=== PATIENT | female | born 1955 | race Caucasian/White ===

== ENCOUNTER → 2016-05-07 | Outpatient (CLI) | payer MEDICARE, OTHER ==
[~2016-05-07] MED LIST: ACTEMRA IV; ALPR-557 GT; APIX5TAB PO; ASPI-983 PO; ASPI-999 PO; ATOR40TA70 PO; CALC-870 PO; CARB-104 PO; CYCL10TA45 GT; DICL75TA2 PO; DILT240C90 PO; GLIP5TAB26 PO; HYDR-3720 PO; LISI1TAB10 PO; LORA10TA7 PO; METF500T8 PO; METO-272 PO; MULT-884 PO; PARO20TA57 PO; PROP10TA8 PO; QTP200T PO; SERT100T8 PO; SULF500T7 PO; TMZP15C PO; ZOLP10TA5 PO
--- NOTE | 2016-05-07 09:33 | Diagnostic Imaging Report ---
EXAMINATION: Ultrasound Doppler abdomen complete. INDICATION: Hypertension. TECHNIQUE: Spectral and color flow imaging of the renal arteries was performed. COMPARISON: The gallbladder ultrasound exam of 01/29/2011 indicated that the right kidney was within normal limits. There are no other previous studies available for comparison. FINDINGS: On this exam, both kidneys were identified. The kidneys are normal in size with the right kidney measuring 12.0 x 5.0 x 5.5 cm and the left kidney estimated to be 12.0 x 5.7 x 5.1 cm. There is no evidence for solid renal mass or for hydronephrosis of either kidney. Renal cortices are normal in thickness and echogenicity. There is no shadowing from the kidneys to suggest nephrolithiasis. The renal arteries were not well visualized due to overlying bowel gas. Only the distal most portion of the renal arteries could be identified. There is no sign of a hemodynamically significant stenosis in these segments of the renal artery. The resistive indices for both kidneys are elevated however with the right resistive index 0.75-0.77 and the left 0.74-0.78 (normal 0.00 or less). The bladder was not imaged during the course of this exam. IMPRESSION: 1. There is no evidence for solid renal mass or for an acute abnormality of either kidney. 2. The renal arteries were not well visualized. Where visualized, there is no sign of a hemodynamically significant stenosis. The resistive indices of both kidneys are elevated however. 3. If further imaging is desired, then CTA of the aorta and renal arteries should be obtained. Dictated by: Dictated on workstation # [id number]
== END ==
LOC: RAD 07:06
PROVIDERS: ATTEND Nurse Practitioner Family
DX: I10 Essential (primary) hypertension (principal)
CPT/HCPCS: 93975

== ENCOUNTER → 2016-05-11 | Outpatient (CLI) | payer MEDICARE, OTHER ==
[~2016-05-11] MED LIST changes: +CATHETER FLUSH 10 ML SYR IV PRN; +REGADENOSON 0.4 MG/5 ML SYR (LEXISCAN) IV ONE
[2016-05-11 09:03] VITALS: BP 216/74
--- NOTE | 2016-05-12 08:23 | STRESS TEST ---
PROCEDURE PHYSICIAN: JEREMIE LOPEZ DATE OF PROCEDURE: 05/11/2016 RESTING AND POST REGADENOSON TECHNETIUM 99M TETROFOSMIN SPECT CT IMAGING: ORDERING PHYSICIAN: Juan Pickett APRN. PRIMARY PHYSICIAN: Dr. Cole CLINICAL DIAGNOSIS: Chest pain. Baseline images were carried out after injection of 10.89 mCi of technetium 99m tetrofosmin. This was followed by 0.4 mg of regadenoson and 31 mCi of technetium 99m tetrofosmin for stress imaging. The electrocardiogram shows significant baseline artifact. The rhythm appears to be atrial fibrillation. The electrocardiogram did not change significantly with regadenoson infusion. Review of images at rest and following stress, does not indicate significant perfusion defects consistent myocardial ischemia or infarction. Gated images show normal global left ventricular systolic function with no regional wall motion. Left ventricular ejection fraction is calculated to be 75%. Left ventricular end-diastolic volume is 57 mL. TID is absent (1.1). CONCLUSIONS: 1. Abnormal cardiac rhythm: atrial fibrillation with a controlled ventricular response. 2. No evidence of significant myocardial ischemia or infarction on this study. 3. Normal regional wall motion. 4. Normal global left ventricular systolic function with a calculated ejection fraction of 75%. Job ID: [id number] Dictated Date: 05/11/2016 15:24:31 Linux Devops Engineer Date: 05/12/2016 08:18:32 / janis GOTTI
== END ==
LOC: CARD 07:12
PROVIDERS: ATTEND Nurse Practitioner Family
DX: R07.89 Other chest pain (principal)
CPT/HCPCS: 78452; 93017

== ENCOUNTER → 2016-05-14 | Outpatient (CLI) | payer MEDICARE, OTHER ==
[~2016-05-14] MED LIST changes: +IOHEXOL 350 MG/ML 100 ML (OMNIPAQUE 350) VIAL IV ONE; +NS 100 ML (IVPB) BAG IV ONE; -REGADENOSON 0.4 MG/5 ML SYR (LEXISCAN) IV ONE
[2016-05-14 11:23] LABS: ALANINE AMINOTRANSFERASE 34 U/L (0-55); ALBUMIN 4.6 G/DL (3.2-4.5); ANION GAP 11 MMOL/L (5-14); ASPARTATE AMINO TRANSFERASE 25 U/L (5-34); BILIRUBIN,TOTAL 0.5 MG/DL (0.1-1.0); BLOOD UREA NITROGEN 11 MG/DL (7-18); BUN/CREATININE RATIO 16; CALCIUM 9.2 MG/DL (8.5-10.1); CARBON DIOXIDE 25 MMOL/L (21-32); CHLORIDE 104 MMOL/L (98-107); GFR ESTIMATED > 60; GLUCOSE 91 MG/DL (70-105); POTASSIUM 4.1 MMOL/L (3.6-5.0); SODIUM 140 MMOL/L (135-145); TOTAL PROTEIN 6.8 G/DL (6.4-8.2)
--- NOTE | 2016-05-14 12:29 | Diagnostic Imaging Report ---
INDICATION: Hypertension. TECHNIQUE: CTA of the abdomen obtained pre and post IV contrast with axial slices and coronal MIP reconstructions. COMPARISON: There is no previous study for comparison. FINDINGS: Visualized portions of the lung bases are clear. There were no pleural fluid collections. There is no free intraperitoneal air. The liver and gallbladder appear unremarkable. The spleen, adrenals, and pancreas are normal. The kidneys bilaterally appear normal. There is no retroperitoneal mass or adenopathy. There is no ascites or abnormal fluid collection. Visualized bowel loops are unremarkable. CTA images demonstrate the abdominal aorta to be patent, but there is some dense calcific plaquing in the aorta with a focal stenotic area in the aorta a few centimeters above the bifurcation. The celiac trunk and SMA appear widely patent. There are single renal arteries on both sides. The right renal artery shows plaquing of the stenosis which may be significant at about a centimeter from the ostium. Distal portion of the renal artery was patent. The left renal artery shows plaquing at the origin, which does not appear to be hemodynamically significant. There is some peripheral plaquing in the segmental branches. There appears to be occlusion of the left common iliac artery at the origin. There is dense plaquing in the left common iliac origin with at least moderate stenosis. IMPRESSION: 1. No abdominal mass or abnormal fluid collection. There is marked atherosclerotic change of the abdominal aorta with diffuse plaquing and focal significant stenosis in the aorta in the infrarenal segment. 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 2. There is minor plaquing of the left renal artery origin without significant stenosis. There is stenosis about a centimeter from the right renal artery origin which may be significant but is partially obscured by calcification. Consider angiography if clinically warranted. Dictated by: Dictated on workstation # [id number]
== END ==
LOC: RAD 10:44
PROVIDERS: ATTEND Nurse Practitioner Family
DX: I15.1 Hypertension secondary to other renal disorders (principal)
CPT/HCPCS: 36415; 74175; 80053

== ENCOUNTER 2016-05-25 09:40 | Day surgery (SDC) | payer MEDICARE, OTHER ==
[~2016-05-25] VITALS: Ht 165.1 cm; Wt 81.6 kg
[2016-05-25] VITALS (16 sets, daily range): BP systolic 140–213; BP diastolic 70–127
[~2016-05-25 09:40] MED LIST changes: -ACTEMRA IV; -APIX5TAB PO; -ASPI-983 PO; -ASPI-999 PO; -ATOR40TA70 PO; -CALC-870 PO; -CATHETER FLUSH 10 ML SYR IV PRN; -DILT240C90 PO; -GLIP5TAB26 PO; -IOHEXOL 350 MG/ML 100 ML (OMNIPAQUE 350) VIAL IV ONE; -LISI1TAB10 PO; -LORA10TA7 PO; -METF500T8 PO; -METO-272 PO; -MULT-884 PO; -NS 100 ML (IVPB) BAG IV ONE; -SERT100T8 PO; -SULF500T7 PO
--- OUTSIDE RECORDS SUMMARY | 2016-05-25 09:43 | XMS REPORT | Continuity of Care Document ---
Author Author [facility] Organization [facility] Address Unknown Phone Unavailable Allergies Active Description Code Type Severity Reaction Onset Reported/Identified Relationship to Patient Clinical Status Yes morphine [id number] Drug Allergy Mild N/A 11/25/2012 Medications Problems Date Dx Coded Attending Type Code Diagnosis Diagnosed By 05/07/2016 Ot 575.6 GB CHOLESTEROLOSIS 05/07/2016 Ot 789.1 HEPATOMEGALY 05/07/2016 Ot 789.01 ABDOMINAL PAIN, RIGHT UPPER QUADRANT 05/07/2016 Ot 721.3 LUMBOSACRAL SPONDYLOSIS 05/07/2016 Ot 721.42 SPOND COMPR LUMB SP CORD 05/07/2016 NINA COBB APRN Ot R07.89 OTHER CHEST PAIN 05/10/2016 NINA COBB APRN Ot I10 ESSENTIAL (PRIMARY) HYPERTENSION 05/10/2016 NINA COBB APRN Ot I10 ESSENTIAL (PRIMARY) HYPERTENSION 05/12/2016 NINA COBB APRN Ot R07.89 OTHER CHEST PAIN 05/14/2016 NINA COBB APRN Ot 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 05/14/2016 NINA COBB APRN Ot 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70 mg /dL 0.60-1.30 Serum or plasma urea nitrogen/creatinine mass ratio 16 NRG Serum or plasma creatinine measurement with calculation of estimated glomerular filtration rate > NRG Serum or plasma glucose measurement (mass/volume) 91 mg/dL 70-105 Serum or plasma calcium measurement (mass/volume) 9.2 mg/dL 8.5-10.1 Serum or plasma total bilirubin measurement (mass/volume) 0.5 mg/dL 0.1-1.0 Serum or plasma alkaline phosphatase measurement (enzymatic activity/volume) 79 U/L 40-136 Serum or plasma aspartate aminotransferase measurement (enzymatic activity/ volume) 25 U/L 5-34 Serum or plasma alanine aminotransferase measurement (enzymatic activity/volume ) 34 U/L 0-55 Serum or plasma protein measurement (mass/volume) 6.8 g/dL 6.4-8.2 Serum or plasma albumin measurement (mass/volume) 4.6 g/dL 3.2-4.5 Encounters ACCT No. Visit Date/Time Discharge Status Pt. Type Provider Facility Loc./Unit Complaint [id number] 11/25/2012 18:44:00 2012 23:59:59 CLS Preadmit BREA SALMON, BELKIS Harmon [facility] ER CONFUSION [id number] 05/14/2016 10:44:00 ACT Outpatient NINA COBB APRN [facility] RAD RENAL HYPERTENSION [id number] 05/11/2016 07:12:00 ACT Outpatient NINA COBB APRN [facility] CARD CHEST PAIN [id number] 05/07/2016 07:06:00 ACT Outpatient INNA COBB APRN [facility] RAD ESSENTIAL HTN [id number] 02/18/2012 09:17:00 Document Registration [id number] 02/12/2011 07:51:00 Document Registration [id number] 01/29/2011 09:09:00 Document Registration
--- OUTSIDE RECORDS SUMMARY | 2016-05-25 09:43 | XMS REPORT | Continuity of Care Document ---
Author Author [facility] Organization [facility] Address Unknown Phone Unavailable Allergies Active Description Code Type Severity Reaction Onset Reported/Identified Relationship to Patient Clinical Status Yes morphine [id number] Drug Allergy Mild N/A 11/25/2012 Medications Problems [...] Status Pt. Type Provider Facility Loc./Unit Complaint [id number] 11/25/2012 18:44:00 2012 23:59:59 CLS Preadmit BREA SALMON, BELKIS Harmon [facility] ER CONFUSION [id number] 05/14/2016 10:44:00 ACT Outpatient NINA OCBB APRN [facility] RAD RENAL HYPERTENSION [id number] 05/11/2016 07:12:00 ACT Outpatient NINA COBB APRN [facility] CARD CHEST PAIN [id number] 05/07/2016 07:06:00 ACT Outpatient NINA COBB APRN [facility] RAD ESSENTIAL HTN [id number] 02/18/2012 09:17:00 Document Registration [id number] 02/12/2011 07:51:00 Document Registration [id number] 01/29/2011 09:09:00 Document Registration
[2016-05-25] MEDS ORDERED: NS IV 1000 ML 1,000 ML ONE (10:02)
[2016-05-25] MEDS ORDERED: LIDOCAINE 1% INJ 20 ML (XYLOCAINE) VIAL ONE (10:02)
[2016-05-25] MEDS ORDERED: HEParin (CATH LAB) 2,000 ML IV ONE (10:02)
[2016-05-25] MEDS ORDERED: NS IV 1000 ML 1,000 ML IV SCH ×2 (10:45→14:33)
[2016-05-25 10:54] LABS: MEAN PLATELET VOLUME 10.6 FL (7.4-10.4); RED BLOOD COUNT 4.74 10^6/uL (4.35-5.85); RED CELL DISTRIBUTION WIDTH 12.3 % (10.0-14.5); WHITE BLOOD COUNT 7.4 10^3/uL (4.3-11.0)
[2016-05-25 11:05] LABS: PROTHROMBIN TIME PATIENT 12.6 SEC (12.2-14.7)
[2016-05-25 11:15] LABS: ALANINE AMINOTRANSFERASE 48 U/L (0-55); ALBUMIN 4.7 G/DL (3.2-4.5); ANION GAP 13 MMOL/L (5-14); ASPARTATE AMINO TRANSFERASE 30 U/L (5-34); BILIRUBIN,TOTAL 0.5 MG/DL (0.1-1.0); BLOOD UREA NITROGEN 18 MG/DL (7-18); BUN/CREATININE RATIO 25; CALCIUM 9.5 MG/DL (8.5-10.1); CARBON DIOXIDE 23 MMOL/L (21-32); CHLORIDE 104 MMOL/L (98-107); CHOLESTEROL 266 MG/DL (< 200); CREATININE SERUM 0.71 MG/DL (0.60-1.30); DIRECT LDL 178 MG/DL (1-129); GFR ESTIMATED > 60; GLUCOSE 163 MG/DL (70-105); SODIUM 140 MMOL/L (135-145); TOTAL PROTEIN 7.2 G/DL (6.4-8.2); TRIGLYCERIDES 296 MG/DL (<150); VLDL CHOLESTEROL 59 MG/DL (5-40)
[2016-05-25] MEDS ORDERED: FLU TRIvalent (5 YOA+) 2016-17 (AFLURIA) 0.5 ML IM ONE (11:15)
[2016-05-25] MEDS ORDERED: METF500T8 PO (11:20)
[2016-05-25] MEDS ORDERED: DILT240C90 PO (11:20)
[2016-05-25] MEDS ORDERED: SULF500T7 PO ×2 (11:20)
[2016-05-25] MEDS ORDERED: APIX5TAB PO (11:20)
[2016-05-25] MEDS ORDERED: ACTEMRA IV (11:20)
[2016-05-25] MEDS ORDERED: METO-272 PO (11:20)
[2016-05-25] MEDS ORDERED: GLIP5TAB26 PO (11:20)
[2016-05-25] MEDS ORDERED: CALC-870 PO (11:20)
[2016-05-25] MEDS ORDERED: LISI1TAB10 PO (11:20)
[2016-05-25] MEDS ORDERED: MULT-884 PO (11:20)
[2016-05-25] MEDS ORDERED: ASPI-983 PO (11:20)
[2016-05-25] MEDS ORDERED: SERT100T8 PO (11:20)
[2016-05-25] MEDS ORDERED: LORA10TA7 PO (11:20)
[2016-05-25] MEDS ORDERED: MIDAZOLAM 5 MG/5 ML (VERSED) VIAL ONE (13:04)
[2016-05-25] MEDS ORDERED: fentaNYL INJECTION 100 MCG/2 ML AMP ONE (13:05)
[2016-05-25] MEDS ORDERED: diphenhydrAMINE 50 MG/ML INJ (BENADRYL) ONE (13:05)
--- NOTE | 2016-05-25 13:47 | Cardiac Procedure Note-CS/ASA ---
Pre-Procedure Note Pre-Op Procedure Note H&P Reviewed The H&P was reviewed, patient examined and no changes noted. Date H&P Reviewed: May 25, 2016 Time H&P Reviewed: 13:47 Conscious Sedation Pre-Proced Time Reviewed: 13:47 ASA Class: 3 Airway Mallampati Classification: (lime appropriate class) I. II. III, IV Lungs Heart ASA score ASA 1: a normal healthy patient ASA 2: a patient with a mild systemic disease (mid diabetes, controlled hypertension, obesity ASA 3: a patient with a severe systemic disease that limits activity (angina , COPD, prior Myocardial infarction) ASA 4: a patient with an incapacitating disease that is a constant threat to life (CHF, renal failure) ASA 5: a moribund patient not expected to survive 24 hrs. (ruptured aneurysm) ASA 6: a declared brain patient whose organs are being harvested. For emergent operations, add the letter E after the classification Grade 2 Sedation Plan: Analgesia, Amnesia, Plan communicated to team members, Discussed options with patient/fam, Discussed risks with patient/fam Note The patient is an appropriate candidate to undergo the planned procedure, sedation, and anesthesia. The patient immediately re-assessed prior to indication. JEREMIE LOPEZ MD FACP FAC CCDS May 25, 2016 13:47
[2016-05-25] MEDS ORDERED: meTOprolol 5 MG/5 ML (LOPRESSOR) VIAL ONE (14:14)
[2016-05-25] MEDS ORDERED: ATOR40TA70 PO (14:41)
[2016-05-25] MEDS ORDERED: ASPI-999 PO (14:41)
--- NOTE | 2016-05-25 14:44 | Discharge Inst-Post CATH ---
Discharge Inst-CATH Post Cardiac Cath D/C Inst Follow Up/Plan F/u with Dr Villatoro in 1-[address] Villatoro's office is arranging a Vascular Surgical consultation. Call the office tomorrow to find out the details of referral appointment CARDIAC CATH DISCHARGE INSTRUCTIONS *Hold Metformin for 48 hours post heart cath. ACTIVITY * Go Home directly and rest. * Limit activity of the leg (or wrist if it was used) for 7 days including aerobics, swimming, jogging, bicycling, etc. * Restrict stair-climbing for 7 days if possible, if not, climb up with your non -cath leg, then bring together on the same step. * Avoid lifting, pushing, pulling or excessive movement of the affected extremity for 7 days. * Customary sexual activity may be resumed after 2 days-use caution not to use a position that strains or causes pain to the affected extremity. * No driving for 24 hours. * NO SMOKING. * Avoid straining for bowel movements for 7 days. * Gentle walking on level ground is allowed. * Returning to work will depend on the type of procedure and the results. Your doctor will discuss this with you. CALL YOUR DOCTOR FOR ANY OF THE FOLLOWING: *If bleeding from the puncture site occurs- Apply gentle pressure to site with clean cloth and call your doctor or EMS. * If a knot or lump forms under the skin, increases in size, or causes pain. * If bruising appears to be worsening or moving further down your leg instead of disappearing. * Temperature above 101 F. CARE OF YOUR GROIN INCISION; * Bruising or purple discoloration of the skin near the puncture site is common. * You may shower only, no bathtub bathing for 5 days. Be careful to avoid slipping as your leg may feel stiff. * If a closure device was used on your femoral artery, please see the attached guide regarding care of the device and your leg. * REMOVE the dressing from your groin the next day after your procedure in the shower. CARE OF YOUR WRIST INCISION; * Bruising or purple discoloration of the skin near the puncture site is common. * You may shower. * DO NOT submerge wrist. * Remove dressing in 24 hours. JEREMIE VILLATORO MD [facility] CCDS May 25, 2016 14:44
[2016-05-25] MEDS ORDERED: PATIENT MAY USE OWN MEDS, ALL PO SCH (14:45)
--- NOTE | 2016-05-25 14:45 | Discharge Inst-Cardiology ---
Discharge Inst-Cardiac Discharge Medications New Medications: Aspirin (Aspirin) 81 Mg Tab.chew 81 MG PO DAILY #90 Ref 3 TAB Atorvastatin Calcium (Atorvastatin Calcium) 40 Mg Tablet 40 MG PO DAILY #90 Ref 3 TAB Continued Medications: Apixaban (Eliquis) 5 Mg Tablet 5 MG PO BID TAB Calcium Carbonate (Tums X-Str) 300 Mg Tab.chew 300 MG PO QID PRN INDIGESTION TAB Diltiazem HCl (Diltiazem 24Hr Cd) 240 Mg Cap.er.24h 240 MG PO DAILY CAP Glipizide (Glipizide ER) 5 Mg Tab.er.24 5 MG PO BID TAB Lisinopril/Hydrochlorothiazide (Lisinopril-Hctz 20-25 mg Tab) 1 Each Tablet 1 TAB PO DAILY TAB Loratadine (Loratadine) 10 Mg Tablet 10 MG PO Q48H TAB Metoprolol Succinate (Metoprolol Succinate) 50 Mg Tab.er.24h 50 MG PO HS TAB Multivits,Ca,Minerals/Iron/FA (Women's Daily Caplet) 1 Each Tablet 1 TAB PO DAILY TAB Sertraline HCl (Sertraline HCl) 100 Mg Tablet 100 MG PO HS TAB Sulfasalazine (Sulfasalazine) 500 Mg Tablet 1500 MG PO DAILY TAKES 3 (500MG) TABLETS EVERY MORNING TAB Sulfasalazine (Sulfasalazine) 500 Mg Tablet 1000 MG PO HS TAKES 2 (500MG) TABLETS TAB ([Actemra]) IV MONTHLY Discontinued Medications: Aspirin (Aspirin EC) 81 Mg Tablet.dr 81 MG PO HS TAB Metformin HCl (Metformin HCl ER) 500 Mg Tab.er.24h 1000 MG PO BID TAKES 2 (500MG) TABLETS TAB Patient Instructions Patient Instructions: Hold METFORMIN until the morning of 05/28/16. Then resume metformin in the previous home dose JEREMIE LOPEZ MD FACP FAC CCDS May 25, 2016 14:45
[2016-05-25] MEDS ORDERED: amLODIPine 10 MG (NORVASC) TAB PO ONE (15:00)
[2016-05-25] MEDS ORDERED: lisINopril 20 MG (ZESTRIL) TAB PO SCH (17:45)
--- NOTE | 2016-05-26 10:23 | ECHOCARDIOGRAPHY REPORT ---
PROCEDURE PHYSICIAN: JEREMIE VILLATORO DATE OF PROCEDURE: 05/25/2016 TWO DIMENSIONAL ECHOCARDIOGRAM REPORT PRIMARY PHYSICIAN: Dr. Cole OTHER PHYSICIAN: Juan Pickett APRN REFERRING PHYSICIAN: ORDERING PHYSICIAN: Dr. Villatoro INDICATION FOR THE PROCEDURE: 1. Peripheral arterial disease. 2. Hypertension. MEASUREMENTS DERIVED VALUES LV DIAMETER (LAX) NORMALS NORMALS Diastolic 4.6 (3.6-5.2) Eject. Fract. (60%+/-6%) Systolic (2.3-3.9) Diastolic Vol. % Shortening (0.22-0.42) Systolic Vol. Aortic Root 3.4 IVS THICKNESS Diastolic 1.4 (0.6-1.1) LVPW THICKNESS Diastolic 1.4 (0.6-1.1) LA DIAMETER Systolic 3.7 (2.1-3.7) DESCRIPTION: Two-dimensional echocardiography shows normal global left ventricular systolic function with normal regional wall motion. Aortic, mitral and tricuspid valve leaflets show good leaflet excursion. There is mild mitral annular calcification. There is no significant pericardial effusion. Doppler imaging shows trivial mitral and tricuspid regurgitation. There is mild concentric left ventricular hypertrophy. There is mild to moderate aortic valve sclerosis. Aortic, mitral and tricuspid valve leaflets show good leaflet excursion. Aortic valve appears to be trileaflet. Mitral inflow is consistent with grade 1 diastolic dysfunction of the left ventricle. Inferior vena cava does not appear to be significantly dilated. CONCLUSIONS: 1. Well preserved global left ventricular systolic function with an ejection fraction of approximately 60%. 2. Trivial, mitral and tricuspid regurgitation. 3. Mitral annular calcification and aortic valve sclerosis, moderate, without evidence of significant valvular stenosis. 4. Mild diastolic dysfunction of the left ventricle. 5. Pulmonary artery systolic pressure is estimated to be within normal limits. Job ID: [id number] Dictated Date: 05/26/2016 09:09:04 Termite Control Service Representative Date: 05/26/2016 10:18:15 / [email or web address]
--- NOTE | 2016-05-27 09:34 | PROCEDURE REPORT ---
PROCEDURE PHYSICIAN: JEREMIE LOPEZ DATE OF PROCEDURE: 05/25/2016 PERIPHERAL ANGIOGRAPHY REPORT: Evelina Schultz is a 61-year-old lady who has bilateral leg claudication, severe, more on the right side. She also has severe hypertension. Peripheral angiography was carried out today after having obtained informed consent. PROCEDURE: She was brought to the cardiac catheterization laboratory. The left groin was prepared and draped in usual sterile fashion. 1% lidocaine was used for local anesthesia. Modified Seldinger technique was used to advance a 5-Haitian sheath in right femoral artery. We will be able to advance a wire across the lower abdominal aorta into the thoracic aorta, but we were not able to advance any catheters up into the abdominal aorta because they were catching in the lower abdominal aorta just proximal to the aortoiliac bifurcation due to stenosis. We tried different catheters but were not able to advance it to beyond the lower abdominal aorta and then decided to carry out angiography of the aortoiliac junction with runoff for which we used a 5-Haitian tapered angle Sims catheter for which we used a straight tapered Sims catheter. We were able to position it just above the aortoiliac bifurcation and angiography was performed with runoff down to the level of the ankles on both sides. Subsequently, following removal of Guide catheter, we performed angiography of the left femoral artery through the sheath, but site of sheath deployment was not suitable for device closure. The patient was transferred to holding area for manual sheath removal. She tolerated the procedure well. BILATERAL ILIAC ARTERY ANGIOGRAPHY WITH RUNOFF: Bilateral iliac artery angiography indicates greater than 90% stenosis in the lower abdominal aorta. The right common iliac artery and the proximal portions of the external and internal right iliac arteries are totally occluded. The external iliac artery reconstitutes via collaterals and then there is a good runoff down to the level of the popliteal artery and its trifurcation. On the left side, there is mild disease involving the common iliac and external and internal iliac arteries. The common femoral and the superficial and deep femoral arteries on the right side are intact. The right popliteal is intact and trifurcates normally with a good runoff down to the level of the ankle. CONCLUSIONS: 1. Greater than 90% lower abdominal aortic stenosis. 2. 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 DISCUSSION AND RECOMMENDATIONS: We will refer for vascular surgical consultation for evaluation for treatment. Risk factor modification has been reviewed with her. Outpatient follow-up has been advised. Job ID: [id number] Dictated Date: 05/25/2016 14:27:23 Last Code Striper Date: 05/27/2016 09:25:47 / janis
== END 2016-05-25 19:58 | disposition home or self-care (01) ==
LOC: CARD 09:40 → ICU 15:12 → CARD 19:58
PROVIDERS: ATTEND Nurse Practitioner Family
DX: I70.213 Atherosclerosis of native arteries of extremities with intermittent claudication, bilateral legs (principal); I70.0 Atherosclerosis of aorta; I70.92 Chronic total occlusion of artery of the extremities; I10 Essential (primary) hypertension; I48.0 Paroxysmal atrial fibrillation; E11.9 Type 2 diabetes mellitus without complications; E78.5 Hyperlipidemia, unspecified; Z79.899 Other long term (current) drug therapy; Z87.891 Personal history of nicotine dependence
CPT/HCPCS: 36200; 36415; 75630; 80053; 80061; 85027; 85610; 85730; 87081; 93306

== ENCOUNTER → 2016-05-31 | Outpatient (CLI) | payer MEDICARE, OTHER ==
[~2016-05-31] MED LIST changes: +ACTEMRA IV; +APIX5TAB PO; +ASPI-983 PO; +ASPI-999 PO; +ATOR40TA70 PO; +CALC-870 PO; +DILT240C90 PO; +GLIP5TAB26 PO; +LISI1TAB10 PO; +LORA10TA7 PO; +METF500T8 PO; +METO-272 PO; +MULT-884 PO; +RT-ALBUTEROL SULF 2.5 MG/3 ML PRE-MIX VIAL INH ONE; +RT-ALBUTEROL SULF 2.5 MG/3 ML PRE-MIX VIAL ONE; +SERT100T8 PO; +SULF500T7 PO
--- OUTSIDE RECORDS SUMMARY | 2016-05-31 12:26 | XMS REPORT | Continuity of Care Document ---
Author Author [facility] Organization [facility] Address Unknown Phone Unavailable Allergies Active Description Code Type Severity Reaction Onset Reported/Identified Relationship to Patient Clinical Status Yes morphine [id number] Drug Allergy Mild N/A 11/25/2012 Medications Problems [...] plasma albumin measurement (mass/volume) 4.6 g/dL 3.2-4.5 Automated blood complete blood count (hemogram) panel - 05/25/16 10:45 Blood leukocytes automated count (number/volume) 7.4 10*3/ uL 4.3-11.0 Blood erythrocytes automated count (number/volume) 4.74 10*6 /uL 4.35-5.85 Venous blood hemoglobin measurement (mass/volume) 15.0 g/dL 11.5-16.0 Blood hematocrit (volume fraction) 43 % 35-52 Automated erythrocyte mean corpuscular volume 91 [foz_us] 80-99 Automated erythrocyte mean corpuscular hemoglobin (mass per erythrocyte) 32 pg 25-34 Automated erythrocyte mean corpuscular hemoglobin concentration measurement ( mass/volume) 35 g/dL 32-36 Automated erythrocyte distribution width ratio 12.3 % 10.0-14.5 Automated blood platelet count (count/volume) 226 10*3/uL 130-400 Automated blood platelet mean volume measurement 10.6 [foz_ us] 7.4-10.4 PT panel in platelet poor plasma by coagulation assay - 05/25/16 10:45 Prothrombin time (PT) in platelet poor plasma by coagulation assay 12.6 s 12.2-14.7 INR in platelet poor plasma or blood by coagulation assay 1.0 0.8-1.4 Activated partial thromboplastin time (aPTT) in platelet poor plasma bycoagulation assay - 05/25/16 10:45 Activated partial thromboplastin time (aPTT) in platelet poor plasma bycoagulation assay 24 s 24-35 Comprehensive metabolic panel - 05/25/16 10:45 Serum or plasma sodium measurement (moles/volume) 140 mmol/ L 135-145 Serum or plasma potassium measurement (moles/volume) 4.0 mmol/L 3.6-5.0 Serum or plasma chloride measurement (moles/volume) 104 mmol /L 98-107 Carbon dioxide 23 mmol/L 21-32 Serum or plasma anion gap determination (moles/volume) 13 mmol/L 5-14 Serum or plasma urea nitrogen measurement (mass/volume) 18 mg/dL 7-18 Serum or plasma creatinine measurement (mass/volume) 0.71 mg /dL 0.60-1.30 Serum or plasma urea nitrogen/creatinine mass ratio 25 NRG Serum or plasma creatinine measurement with calculation of estimated glomerular filtration rate > NRG Serum or plasma glucose measurement (mass/volume) 163 mg/dL 70-105 Serum or plasma calcium measurement (mass/volume) 9.5 mg/dL 8.5-10.1 Serum or plasma total bilirubin measurement (mass/volume) 0.5 mg/dL 0.1-1.0 Serum or plasma alkaline phosphatase measurement (enzymatic activity/volume) 80 U/L 40-136 Serum or plasma aspartate aminotransferase measurement (enzymatic activity/ volume) 30 U/L 5-34 Serum or plasma alanine aminotransferase measurement (enzymatic activity/volume ) 48 U/L 0-55 Serum or plasma protein measurement (mass/volume) 7.2 g/dL 6.4-8.2 Serum or plasma albumin measurement (mass/volume) 4.7 g/dL 3.2-4.5 Lipid 1996 panel - 05/25/16 10:45 Serum or plasma triglyceride measurement (mass/volume) 296 mg/dL <150 Serum or plasma cholesterol measurement (mass/volume) 266 mg /dL < 200 Serum or plasma cholesterol in HDL measurement (mass/volume) 47 mg/dL 40-60 Cholesterol in LDL [mass/volume] in serum or plasma by direct assay 178 mg/dL 1-129 Serum or plasma cholesterol in VLDL measurement (mass/volume) 59 mg/dL 5-40 Methicillin resistant Staphylococcus aureus (MRSA) screening culture - 10:45 Methicillin resistant Staphylococcus aureus (MRSA) screening culture NEG NRG Encounters ACCT No. Visit Date/Time Discharge Status Pt. Type Provider Facility Loc./Unit Complaint [id number] 05/25/2016 09:40:00 2016 19:58:00 DIS Outpatient NINA COBB APRN [facility] CARD PAD,HTN,CAROTID BRUIT [id number] 11/25/2012 18:44:00 2012 23:59:59 CLS Preadmit BREA SALMON, BELKIS Harmon [facility] ER CONFUSION [id number] 05/14/2016 10:44:00 ACT Outpatient NINA COBB APRN [facility] RAD RENAL HYPERTENSION [id number] 05/11/2016 07:12:00 ACT Outpatient NINA COBB APRN [facility] CARD CHEST PAIN [id number] 05/07/2016 07:06:00 ACT Outpatient NINA COBB FIBER TECHNICIAN [facility] RAD ESSENTIAL HTN [id number] 02/18/2012 09:17:00 Document Registration [id number] 02/12/2011 07:51:00 Document Registration [id number] 01/29/2011 09:09:00 Document Registration
== END ==
LOC: RT 12:23
PROVIDERS: ATTEND Internal Medicine Cardiovascular Disease
DX: R06.02 Shortness of breath (principal); I70.213 Atherosclerosis of native arteries of extremities with intermittent claudication, bilateral legs; I10 Essential (primary) hypertension; R09.89 Other specified symptoms and signs involving the circulatory and respiratory systems; Z87.891 Personal history of nicotine dependence
CPT/HCPCS: 94060; 94640; 94726; 94729

== ENCOUNTER 2016-09-25 20:30 | Outpatient (CLI) | payer MEDICARE, OTHER ==
[~2016-09-25 20:30] MED LIST changes: -RT-ALBUTEROL SULF 2.5 MG/3 ML PRE-MIX VIAL INH ONE; -RT-ALBUTEROL SULF 2.5 MG/3 ML PRE-MIX VIAL ONE
== END 2016-09-26 06:25 | disposition home or self-care (01) ==
LOC: SLEEP 20:30
PROVIDERS: ATTEND Nurse Practitioner Family
DX: G47.50 Parasomnia, unspecified (principal); G47.10 Hypersomnia, unspecified
CPT/HCPCS: 95810